=== PATIENT | male | born 1990 | race Caucasian/White ===

== ENCOUNTER 2016-07-17 11:27 | Inpatient (IN) ==
--- NOTE | 2016-07-17 12:00 | Emergency Department Note ---
Disposition Clinical Impression: Syncope, Tachycardia, Testicular cancer, Sepsis, Pneumonia, Abnormal urinalysis , Anemia Disposition: Admitted As Inpatient Referrals: NO,PCP [Primary Care Provider] - Forms: Work/School Release, ED Satisfaction Letter General Adult HPI - General Chief complaint: ED General Medical Stated complaint: Near syncope, fever, cancer patient Source: patient, family Limitations: no limitations - History of Present Illness HPI Narrative: 26-year-old male reports emergency department concerned with fever and feeling weak and passing out. The patient is being treated for testicular cancer. He finished treatments last week and was told if he developed fever to consult with a physician. The patient states he has had temperatures up to 102. He has also had a cough but no efra sore throat and ear pain or runny nose. No coughing of blood or chest pain or leg swelling or pain. The patient felt weak today, he essentially started to fall and reports he lost consciousness he was caught by his female newspaper journalist and then revived. There is no history of seizure -like activity or direct injury or fall onto the ground. The patient denies any chest pain shortness of breath abdominal pain vomiting or diarrhea he has had no trouble moving his arms or legs independently, there is no history of headache or confusion. No dysarthria or unilateral arm or leg weakness or numbness no back pain or urinary problems. The patient's concerns are fever, recent cancer therapy, and passing out or nearly passing out today. There is no history of bleeding. The patient is not known to be anticoagulated. He has no history of heart arrhythmias or heart problems. Pain Scale: 5 - Related Data Home Medications Medication Instructions Recorded Confirmed Ibuprofen [Motrin] 800 mg PO AD PRN 04/06/16 04/22/16 Previous Rx's Medication Instructions Recorded Hydrocodone/Acetaminophen 1 each PO Q4H PRN #20 tablet 03/28/16 [Hydrocodon-Acetaminophen 5-325] Dexamethasone [Decadron] 4 mg PO BID #36 tab 04/15/16 Magic Mouthwash [Magic Mouthwash 10 ml PO QID PRN #240 ml 04/15/16 BLM] Ondansetron ODT [Zofran ODT] 4 mg SL Q8HR PRN #30 tab.rapdis 04/15/16 Prochlorperazine Maleate 10 mg PO Q8HR PRN #90 tablet 04/15/16 [Compazine] Lidocaine/Prilocaine CREAM [Emla] 1 gm TP AD #1 tube 04/22/16 Promethazine [Phenergan] 12.5 mg RC Q6HR PRN #15 supp.rect 06/08/16 Promethazine [Phenergan] 25 mg PO Q6HR PRN #30 tablet 06/08/16 Filgrastim [Neupogen] 480 mcg SQ DAILY #5 mls 06/27/16 Allergies Allergy/AdvReac Type Severity Reaction Status Date / Time No Known Allergies Allergy Verified 07/04/16 14:40 All systems ED: reviewed and negative except as stated. Past Medical History - Past Medical History Medical history: Reports: cancer, other Psychiatric history: Reports: no psych history - Social History Smoking Status: Never smoker Smokeless Tobacco Status: No Alcohol use: Reports: none Drug use: Reports: none Physical Exam - General Limitations: no limitations General appearance: alert, in no apparent distress - Head Head exam: atraumatic, normocephalic, normal inspection - Eye Eye exam: Present: normal appearance, PERRL, EOMI. Absent: scleral icterus, conjunctival injection, miosis, mydriasis - ENT ENT exam: normal exam, normal oropharynx, mucous membranes moist, TM's normal bilaterally, normal external ear exam - Neck Neck exam: Present: normal inspection, full ROM, trachea midline. Absent: tenderness, meningismus - Chest Chest inspection: Present: symmetric chest wall rise. Absent: tenderness - Respiratory Respiratory exam: Present: normal lung sounds bilaterally. Absent: respiratory distress, prolonged expiratory phase - Cardiovascular Cardiovascular exam: Present: normal rhythm, tachycardia - Abdominal Exam Abdominal exam: Present: soft, Non-Tender, normal bowel sounds. Absent: tenderness, distention, guarding, rebound, rigidity, pulsatile mass - Extremities Exam Extremities exam: Present: normal inspection, full ROM, normal capillary refill. Absent: tenderness, pedal edema, joint swelling, calf tenderness - Expanded Lower Extremity Exam Lower leg exam: Absent: Homans' sign Neurovascular/Tendon exam: Present: normal capillary refill. Absent: motor deficit, sensory deficit, tendon deficit, extremity cold to touch, pallor - Back Exam Back exam: Present: normal inspection, full ROM. Absent: tenderness, CVA tenderness (R), CVA tenderness (L), vertebral tenderness - Neurological Exam Neurological exam: Present: alert, oriented X3, CN II-XII intact. Absent: motor sensory deficit - Psychiatric Psychiatric exam: Present: normal affect, normal mood - Skin Skin exam: Present: warm, dry, intact, normal color. Absent: rash, cyanosis, diaphoresis, erythema, pallor, mottled Course Vital Signs Temperature 98.0 F 07/17/16 11:29 Pulse Rate 113 07/17/16 11:29 Respiratory Rate 18 07/17/16 11:29 Blood Pressure 112/78 07/17/16 11:29 O2 Sat by Pulse Oximetry 97 07/17/16 11:29 Temperature 98.0 F 07/17/16 11:29 Pulse Rate 106 07/17/16 14:31 Respiratory Rate 18 07/17/16 14:31 Blood Pressure 113/76 07/17/16 14:31 O2 Sat by Pulse Oximetry 95 07/17/16 14:31 Oxygen Delivery Oxygen Delivery Room Air Medical Decision Making - MDM Narrative Medical decision making narrative: The patient has a history of testicular cancer with recent treatment, he is leukopenic, tachycardic, and has apparent pneumonia based on the chest x-ray. He meets sepsis criteria. The patient had a syncopal event, he was given IV fluids, blood cultures were sent, initial antibiotics were ordered. Based on the patient's comorbidities, apparent pneumonitis, immunocompromise, positive sepsis criteria and syncopal event, I thought it would be appropriate to admit the patient to the hospital. I discussed the case with the hospitalist who has accepted the patient to their care. - Lab Data Lab results reviewed: Yes I reviewed the patient's lab results. Result diagrams: 07/17/16 12:35 07/17/16 12:35 Lab Results 07/17/16 07/17/16 07/17/16 Range/Units 12:07 12:07 12:35 WBC 2.8 L (4.3-11.1) K/mcL RBC 4.04 L (4.19-5.50) M/mcL Hgb 11.9 L (12.9-16.9) g/dL Hct 34.5 L (37.5-50.1) % MCV 85.4 (83.0-100.0) fL MCH 29.5 (28.0-33.3) pg MCHC 34.5 (31.6-35.5) g/dL RDW 13.4 (11.5-14.5) % Plt Count 316 (140-400) K/mcL MPV 8.6 L (9.4-12.4) fL Seg Neutrophils % 64.0 % Band Neutrophils % 2.0 (0-4) % Lymphocytes % 16.0 % Monocytes % 18.0 % Neutrophils # 1.9 (1.6-8.9) K/mcL Lymphocytes # 0.5 L (0.6-4.6) K/mcL Monocytes # 0.5 (0.0-1.3) K/mcL Platelet Estimate Normal (Normal) PT (9.4-12.1) Seconds INR APTT (26.0-36.0) Seconds Sodium (136-145) mEq/L Potassium (3.5-4.5) mEq/L Chloride (98-109) mEq/L Carbon Dioxide (19-29) mEq/L BUN (8-26) mg/dL Creatinine (0.72-1.25) mg/dL Est GFR ( Amer) (> 60) Est GFR (Non-Af Amer) (> 60) BUN/Creatinine Ratio (6-26) Glucose (70-99) mg/dL Calculated Osmolality (280-300) Lactic Acid (0.5-2.2) mmol/L Calcium (8.6-10.8) mg/dL Total Bilirubin (0.2-1.2) mg/dL Direct Bilirubin (0.0-0.5) mg/dL Indirect Bilirubin (0.0-1.2) mg/dL AST (5-34) Units/L ALT (0-55) Units/L Alkaline Phosphatase (38-126) Units/L Troponin I (0-0.03) ng/mL C-Reactive Protein (Less than 5) mg/L Serum Total Protein (6.0-8.3) g/dL Albumin (3.5-5.0) g/dL Globulin (2.4-3.5) g/dL Albumin/Globulin Ratio (1.1-2.2) Ur Specimen Adequacy See below A Urine Color Dark Yellow (Yellow) Urine Clarity Cloudy A (Clear) Urine pH 6.0 (5.0-8.0) pH Units Ur Specific [place] 1.029 H (1.010-1.025) Urine Protein 30 H (Neg-Trace) mg/dL Urine Glucose (UA) Normal (Normal) mg/dL Urine Ketones Negative (Negative) mg/dL Urine Blood Negative (Negative) Urine Nitrite Negative (Negative) Urine Bilirubin Negative (Negative) Urine Urobilinogen Normal (Normal) mg/dL Ur Leukocyte Esterase Negative (Negative) Urine Microscopic RBC 0-3 (0-3) per hpf Urine Microscopic WBC 5-15 H (0-3) per hpf Ur Squamous Epith Cells Many H (None-Few) per lpf Urine Bacteria None Seen (None-Few) per hpf Ur Culture Indicated? YES A (NO) Urine Opiates Screen Negative (Ohwpxm=583) ng/mL Ur Barbiturates Screen Negative (Qfilob=065) ng/mL Ur Phencyclidine Scrn Negative (Cutoff=25) ng/mL Ur Amphetamines Screen Negative (Rftgcz=6590) ng/mL U Benzodiazepines Scrn Negative (Tidjgp=649) ng/mL Urine Cocaine Screen Negative (Cutoff= 300) ng/mL U Marijuana (THC) Screen Negative (Cutoff = 50) ng/mL 07/17/16 07/17/16 07/17/16 Range/Units 12:35 12:35 12:35 WBC (4.3-11.1) K/mcL RBC (4.19-5.50) M/mcL Hgb (12.9-16.9) g/dL Hct (37.5-50.1) % MCV (83.0-100.0) fL MCH (28.0-33.3) pg MCHC (31.6-35.5) g/dL RDW (11.5-14.5) % Plt Count (140-400) K/mcL MPV (9.4-12.4) fL Seg Neutrophils % % Band Neutrophils % (0-4) % Lymphocytes % % Monocytes % % Neutrophils # (1.6-8.9) K/mcL Lymphocytes # (0.6-4.6) K/mcL Monocytes # (0.0-1.3) K/mcL Platelet Estimate (Normal) PT 12.6 H (9.4-12.1) Seconds INR 1.2 APTT 29.6 (26.0-36.0) Seconds Sodium 138 (136-145) mEq/L Potassium 3.5 (3.5-4.5) mEq/L Chloride 103 (98-109) mEq/L Carbon Dioxide 28 (19-29) mEq/L BUN 16 (8-26) mg/dL Creatinine 0.91 (0.72-1.25) mg/dL Est GFR ( Amer) > 60 (> 60) Est GFR (Non-Af Amer) > 60 (> 60) BUN/Creatinine Ratio 18 (6-26) Glucose 104 H (70-99) mg/dL Calculated Osmolality 287 (280-300) Lactic Acid 0.9 (0.5-2.2) mmol/L Calcium 8.6 (8.6-10.8) mg/dL Total Bilirubin 0.5 (0.2-1.2) mg/dL Direct Bilirubin 0.2 (0.0-0.5) mg/dL Indirect Bilirubin 0.3 (0.0-1.2) mg/dL AST 26 (5-34) Units/L ALT 32 (0-55) Units/L Alkaline Phosphatase 51 (38-126) Units/L Troponin I (0-0.03) ng/mL C-Reactive Protein 6 H (Less than 5) mg/L Serum Total Protein 6.5 (6.0-8.3) g/dL Albumin 3.4 L (3.5-5.0) g/dL Globulin 3.1 (2.4-3.5) g/dL Albumin/Globulin Ratio 1.1 (1.1-2.2) Ur Specimen Adequacy Urine Color (Yellow) Urine Clarity (Clear) Urine pH (5.0-8.0) pH Units Ur Specific [place] (1.010-1.025) Urine Protein (Neg-Trace) mg/dL Urine Glucose (UA) (Normal) mg/dL Urine Ketones (Negative) mg/dL Urine Blood (Negative) Urine Nitrite (Negative) Urine Bilirubin (Negative) Urine Urobilinogen (Normal) mg/dL Ur Leukocyte Esterase (Negative) Urine Microscopic RBC (0-3) per hpf Urine Microscopic WBC (0-3) per hpf Ur Squamous Epith Cells (None-Few) per lpf Urine Bacteria (None-Few) per hpf Ur Culture Indicated? (NO) Urine Opiates Screen (Bwpytx=621) ng/mL Ur Barbiturates Screen (Clismt=667) ng/mL Ur Phencyclidine Scrn (Cutoff=25) ng/mL Ur Amphetamines Screen (Efunsp=0773) ng/mL U Benzodiazepines Scrn (Qpjght=729) ng/mL Urine Cocaine Screen (Cutoff= 300) ng/mL U Marijuana (THC) Screen (Cutoff = 50) ng/mL 07/17/16 Range/Units 12:35 WBC (4.3-11.1) K/mcL RBC (4.19-5.50) M/mcL Hgb (12.9-16.9) g/dL Hct (37.5-50.1) % MCV (83.0-100.0) fL MCH (28.0-33.3) pg MCHC (31.6-35.5) g/dL RDW (11.5-14.5) % Plt Count (140-400) K/mcL MPV (9.4-12.4) fL Seg Neutrophils % % Band Neutrophils % (0-4) % Lymphocytes % % Monocytes % % Neutrophils # (1.6-8.9) K/mcL Lymphocytes # (0.6-4.6) K/mcL Monocytes # (0.0-1.3) K/mcL Platelet Estimate (Normal) PT (9.4-12.1) Seconds INR APTT (26.0-36.0) Seconds Sodium (136-145) mEq/L Potassium (3.5-4.5) mEq/L Chloride (98-109) mEq/L Carbon Dioxide (19-29) mEq/L BUN (8-26) mg/dL Creatinine (0.72-1.25) mg/dL Est GFR ( Amer) (> 60) Est GFR (Non-Af Amer) (> 60) BUN/Creatinine Ratio (6-26) Glucose (70-99) mg/dL Calculated Osmolality (280-300) Lactic Acid (0.5-2.2) mmol/L Calcium (8.6-10.8) mg/dL Total Bilirubin (0.2-1.2) mg/dL Direct Bilirubin (0.0-0.5) mg/dL Indirect Bilirubin (0.0-1.2) mg/dL AST (5-34) Units/L ALT (0-55) Units/L Alkaline Phosphatase (38-126) Units/L Troponin I 0.00 (0-0.03) ng/mL C-Reactive Protein (Less than 5) mg/L Serum Total Protein (6.0-8.3) g/dL Albumin (3.5-5.0) g/dL Globulin (2.4-3.5) g/dL Albumin/Globulin Ratio (1.1-2.2) Ur Specimen Adequacy Urine Color (Yellow) Urine Clarity (Clear) Urine pH (5.0-8.0) pH Units Ur Specific [place] (1.010-1.025) Urine Protein (Neg-Trace) mg/dL Urine Glucose (UA) (Normal) mg/dL Urine Ketones (Negative) mg/dL Urine Blood (Negative) Urine Nitrite (Negative) Urine Bilirubin (Negative) Urine Urobilinogen (Normal) mg/dL Ur Leukocyte Esterase (Negative) Urine Microscopic RBC (0-3) per hpf Urine Microscopic WBC (0-3) per hpf Ur Squamous Epith Cells (None-Few) per lpf Urine Bacteria (None-Few) per hpf Ur Culture Indicated? (NO) Urine Opiates Screen (Xaflak=884) ng/mL Ur Barbiturates Screen (Mxbmvu=225) ng/mL Ur Phencyclidine Scrn (Cutoff=25) ng/mL Ur Amphetamines Screen (Oeuskg=2856) ng/mL U Benzodiazepines Scrn (Pyhgpq=425) ng/mL Urine Cocaine Screen (Cutoff= 300) ng/mL U Marijuana (THC) Screen (Cutoff = 50) ng/mL - Radiology Data Radiology results reviewed: Yes I reviewed the patient's radiology results.
[2016-07-17 12:17] LABS: Bilirubin,Urine Negative (Negative); Blood,Urine Negative (Negative); Clarity,Urine Cloudy (Clear); Color,Urine Dark Yellow (Yellow); Glucose,Urine (UA) Normal (Normal); Ketones,Urine Negative (Negative); Leukocyte Esterase,Urine Negative (Negative); Nitrite,Urine Negative (Negative); Protein,Urine 30 mg/dL (Neg-Trace); Specific Gravity,Urine 1.029 (1.010-1.025); Urobilinogen,Urine Normal (Normal)
[2016-07-17 12:20] LABS: Bacteria,Urine None Seen per hpf (None-Few); Squamous Epithelial Cell,Urine Many per lpf (None-Few)
[2016-07-17 12:22] LABS: Amphetamine Screen,Urine Negative ng/mL (Cutoff=1000); Barbiturate Screen,Urine Negative ng/mL (Cutoff=200); Benzodiazepines Screen,Urine Negative ng/mL (Cutoff=200); Cannabinoid Screen,Urine Negative ng/mL (Cutoff = 50); Cocaine Screen,Urine Negative ng/mL (Cutoff= 300); Opiate Screen,Urine Negative ng/mL (Cutoff=300); Phencyclidine Screen,Urine Negative ng/mL (Cutoff=25)
[2016-07-17 12:28] LABS: RBC,Urine 0-3 per hpf (0-3)
[2016-07-17 12:48] LABS: Hematocrit 34.5 % (37.5-50.1); Hemoglobin 11.9 g/dL (12.9-16.9); Mean Corpuscular HGB Conc 34.5 g/dL (31.6-35.5); Mean Corpuscular Hemoglobin 29.5 pg (28.0-33.3); Mean Corpuscular Volume 85.4 fL (83.0-100.0); Mean Platelet Volume 8.6 fL (9.4-12.4); Platelet Count 316 K/mcL (140-400); Red Blood Count 4.04 M/mcL (4.19-5.50); Red Cell Distribution Width 13.4 % (11.5-14.5)
[2016-07-17 12:53] LABS: INR 1.2; Prothrombin Time 12.6 Seconds (9.4-12.1)
[2016-07-17 12:56] LABS: Activated Partial Thrombo Time 29.6 Seconds (26.0-36.0)
[2016-07-17 13:02] LABS: Alanine Aminotransferase 32 Units/L (0-55); Albumin 3.4 g/dL (3.5-5.0); Albumin/Globulin Ratio 1.1 (1.1-2.2); Alkaline Phosphatase 51 Units/L (38-126); Aspartate Amino Transferase 26 Units/L (5-34); BUN/Creatinine Ratio 18 (6-26); Bilirubin,Direct 0.2 mg/dL (0.0-0.5); Bilirubin,Indirect 0.3 mg/dL (0.0-1.2); Bilirubin,Total 0.5 mg/dL (0.2-1.2); Blood Urea Nitrogen 16 mg/dL (8-26); C-Reactive Protein 6 mg/L (Less than 5); Calcium 8.6 mg/dL (8.6-10.8); Carbon Dioxide 28 mEq/L (19-29); Chloride 103 mEq/L (98-109); Globulin 3.1 g/dL (2.4-3.5); Glucose 104 mg/dL (70-99); Osmolality,Calculated 287 (280-300); Potassium 3.5 mEq/L (3.5-4.5); Sodium 138 mEq/L (136-145); Total Protein 6.5 g/dL (6.0-8.3); eGFR For African Americans > 60 (> 60); eGFR For Non-African Americans > 60 (> 60)
[2016-07-17 13:14] LABS: Lymphocytes # 0.5 K/mcL (0.6-4.6); Monocytes # 0.5 K/mcL (0.0-1.3); Neutrophils # 1.9 K/mcL (1.6-8.9)
[2016-07-17 13:15] LABS: Platelet Estimate Normal (Normal)
[2016-07-17] MEDS ORDERED: Levofloxacin 750 MG/150 ML 750 MG/150 ML BAG IVPB ONE (14:30)
[2016-07-17] MEDS ORDERED: 0.9 % Sodium Chloride 1,000 ML IVC SCH (14:45)
[2016-07-17] MEDS ORDERED: Naloxone 0.4 MG/ML INJ IVP PRN (15:33)
[2016-07-17] MEDS ORDERED: Ibuprofen 400 MG TABLET PO PRN (15:33)
[2016-07-17] MEDS ORDERED: Acetaminophen 325 MG TABLET PO PRN (15:33)
[2016-07-17] MEDS ORDERED: *HR* HYDROcodone/Acet 5/325 mg TABLET PO PRN (15:35)
--- NOTE | 2016-07-17 15:43 | Internal Med History&Physical ---
Date of Encounter: 07/17/16 Time of Encounter: 15:15 Assessment and Plan (1) HCAP (healthcare-associated pneumonia) Current visit: Yes Status: Acute CXR consistent with Left lower lobe PNA Given immunocompromised status and currently being on chemotherapy, will treat as HCAP continue IV vancomycin and zosyn Pharmacy to dose Vancomycin and monitor trough continue IV fluids sinus tachycardia noted, likely secondary to underlying infection will follow up blood cultures No urinary symptoms reported given current UA, will f/u urine cultures Tylenol prn fever Guaifenesin Prn cough will obtain sputum cultures if able (currently denies productive cough) will monitor respiratory status O2 supplementation as needed (2) Anemia Current visit: Yes Status: Acute likely of chronic disease will obtain iron studies H&H low but acceptable no acute bleeding reported at this time will continue to closely monitor Qualifiers: Anemia type: unspecified type Qualified Code(s): D64.9 - Anemia, unspecified (3) Testicular cancer Current visit: Yes Status: Chronic Currently undergoing chemotherapy under the care of Dr. Trinh last chemotherapy: June Will closely monitor WBC and maintain neutropenic precautions if needed continue pain control as per home medications Promethazine prn n/v Qualifiers: Descendance of testis: unspecified Laterality: unspecified laterality Qualified Code(s): C62.90 - Malignant neoplasm of unspecified testis, unspecified whether descended or undescended (4) DVT prophylaxis Current visit: Yes Status: Acute Lovenox SQ Internal Medicine - H&P: HPI Chief complaint: syncope Admitted From: Home Plans for Post Hospital Care: Home History of present illness: Mr. Godoy is a 26 year old male with PMH of testicular ca (Non-seminoma germ cell tumor), s/p radical orchiectomy who presented to the ER s/p syncopal episode. Patient states he has been feeling sick with fever, chills, cough for the last few days and felt weak today. He states he felt too weak today with Tmax of 102 and passed out due to which he came to the hospital. He reports of finishing his chemotherapy on June. Upon arrival to the ER he was noted to be have anemia, tachycardia, and imaging finding consistent with left lower lobe pneumonia. He is started on IV abx and iV fluids. At this time he is resting comfortably in bed with family present at bedside. Reports of feeling better. Denies any headache, dizziness, lightheadedness, chest pain, palpitations, sob, abd pain, n/v, fever, or chills at this time. Past Med Surg Social Fam HX - Past Medical History Medical history: cancer (testicular cancer), other Psychiatric history: no psych history - Social History Smoking Status: Never smoker Smokeless Tobacco Status: No Alcohol use: none Drug use: none Internal Medicine - H&P: Meds Hydrocodone/Acetaminophen [Hydrocodon-Acetaminophen 5-325] 1 each PO Q4H PRN # 20 tablet 03/28/16 [Rx] Ibuprofen [Motrin] 800 mg PO AD PRN 04/06/16 [History] Dexamethasone [Decadron] 4 mg PO BID #36 tab 04/15/16 [Rx] Magic Mouthwash [Magic Mouthwash BLM] 10 ml PO QID PRN #240 ml 04/15/16 [Rx] Ondansetron ODT [Zofran ODT] 4 mg SL Q8HR PRN #30 tab.rapdis 04/15/16 [Rx] Prochlorperazine Maleate [Compazine] 10 mg PO Q8HR PRN #90 tablet 04/15/16 [Rx] Lidocaine/Prilocaine CREAM [Emla] 1 gm TP AD #1 tube 04/22/16 [Rx] Promethazine [Phenergan] 12.5 mg RC Q6HR PRN #15 supp.rect 06/08/16 [Rx] Promethazine [Phenergan] 25 mg PO Q6HR PRN #30 tablet 06/08/16 [Rx] Filgrastim [Neupogen] 480 mcg SQ DAILY #5 mls 06/27/16 [Rx] Allergies No Known Allergies Allergy (Verified 07/04/16 14:40) All Systems PM: A 10-system review of systems was performed and is negative for pertinent findings except as documented above in the HPI. - Constitutional Constitutional: as per HPI - Constitutional Vitals: Temp Pulse Resp BP Pulse Ox 98.0 F 106 18 114/72 97 07/17/16 11:29 07/17/16 15:01 07/17/16 15:01 07/17/16 15:01 07/17/16 15:01 General appearance: Present: cooperative, A&O X 3, pleasant, no acute distress, answers questions appropriately - Head Head exam: Present: atraumatic, normocephalic - Eye Eye exam: Present: EOMI, normal appearance, conjuntiva pink, sclera anicteric - Respiratory Respiratory exam: Absent: respiratory distress, wheezes (coarse breath sounds bilaterally) - Cardiovascular Cardiovascular exam: Present: +S1, +S2, tachycardia. Absent: diastolic murmur, systolic murmur - GI/Abdominal GI/Abdominal exam: Present: normal bowel sounds, soft, no peritoneal signs. Absent: distended, tenderness - Extremities Exam Extremities exam: Present: warm, radial pulses palpable and symetrical. Absent : calf tenderness, cyanotic, pedal edema - Neurological Exam Neurological exam: Present: alert, oriented X3, no focal deficits - Psychiatric Psychiatric exam: Present: normal affect, normal mood Internal Med - H&P Results - Labs CBC & Chem 7: 07/17/16 12:35 07/17/16 12:35
[2016-07-17] MEDS ORDERED: GuaiFENesin Liq 200 MG/10 ML UDC PO PRN (15:48)
[2016-07-17] MEDS ORDERED: Vancomycin 2,000 MG in D5% in Water 500 ML IVPB ONE (17:00)
[2016-07-17] MEDS: 0.9 % Sodium Chloride 1,000 ML IVC SCH (17:16)
[2016-07-17] MEDS: Piperacillin/Tazobactam 3.375 GM in D5% in Water (Mini-Bag+) 100 ML IVPB SCH (17:22)
[2016-07-18] MEDS: Piperacillin/Tazobactam 3.375 GM in D5% in Water (Mini-Bag+) 100 ML IVPB SCH ×3 (01:17→17:09)
[2016-07-18] MEDS: *HR* Enoxaparin 40 MG/0.4 ML SYRINGE SQ SCH (04:59)
[2016-07-18] MEDS: Vancomycin 1,500 MG in D5% in Water 250 ML IVPB SCH ×2 (04:59→17:09)
[2016-07-18 05:08] LABS: Basophils % 1.6 %; Eosinophils % 0.8 %; Hematocrit 32.3 % (37.5-50.1); Hemoglobin 10.9 g/dL (12.9-16.9); Immature Granulocytes % 0.8 % (0-4); Lymphocytes % 25.9 %; Mean Corpuscular HGB Conc 33.7 g/dL (31.6-35.5); Mean Corpuscular Volume 85.9 fL (83.0-100.0); Mean Platelet Volume 8.6 fL (9.4-12.4); Monocytes # 0.6 K/mcL (0.0-1.3); Monocytes % 24.3 %; Neutrophils # 1.2 K/mcL (1.6-8.9); Platelet Count 275 K/mcL (140-400); Red Blood Count 3.76 M/mcL (4.19-5.50); Red Cell Distribution Width 13.4 % (11.5-14.5); Segmented Neutrophils % 46.6 %
[2016-07-18 05:17] LABS: BUN/Creatinine Ratio 14 (6-26); Blood Urea Nitrogen 12 mg/dL (8-26); Calcium 8.4 mg/dL (8.6-10.8); Carbon Dioxide 23 mEq/L (19-29); Chloride 102 mEq/L (98-109); Glucose 95 mg/dL (70-99); Magnesium 1.6 mg/dL (1.6-2.6); Osmolality,Calculated 280 (280-300); Phosphorous 3.7 mg/dL (2.3-4.7); Potassium 3.9 mEq/L (3.5-4.5); Sodium 135 mEq/L (136-145); eGFR For African Americans > 60 (> 60); eGFR For Non-African Americans > 60 (> 60)
[2016-07-18 05:31] LABS: % Iron Saturation 71 % (20-55); Iron 168 mcg/dL (65-175); Transferrin 170 mg/dL (174-364)
[2016-07-18 05:51] LABS: Ferritin 1162 ng/ml (22-275)
[2016-07-18 05:56] LABS: Lymphocytes # 0.7 K/mcL (0.6-4.6)
[2016-07-18 05:57] LABS: Platelet Estimate Normal (Normal); Reactive Lymphocytes Present (Not Present)
[2016-07-18] MEDS: 0.9 % Sodium Chloride 1,000 ML IVC SCH (09:28)
[2016-07-18] MEDS: *HR* Promethazine 25 MG/ML VIAL IVP PRN ×2 (09:33→22:59)
--- NOTE | 2016-07-18 10:04 | Internal Med Progress Note ---
Date of Encounter: 07/18/16 Time of Encounter: 09:20 - Assessment and plan (1) HCAP (healthcare-associated pneumonia) Current Visit: Yes Status: Acute Assessment and plan: CXR consistent with Left lower lobe PNA Given immunocompromised status and currently being on chemotherapy, will treat as HCAP continue IV vancomycin and zosyn Pharmacy to dose Vancomycin and monitor trough continue IV fluids Follow up blood cultures No urinary symptoms reported given current UA, will f/u urine cultures Tylenol prn fever Guaifenesin Prn cough will obtain sputum cultures if able (currently denies productive cough) will monitor respiratory status O2 supplementation as needed (2) Anemia Current Visit: Yes Status: Acute Assessment and plan: H&H low but acceptable studies consistent with anemia of chronic disease no acute bleeding reported at this time continue to closely monitor Qualifiers: Anemia type: unspecified type Qualified Code(s): D64.9 - Anemia, unspecified (3) Testicular cancer Current Visit: Yes Status: Chronic Assessment and plan: Currently undergoing chemotherapy under the care of Dr. Trinh last chemotherapy: June continue pain control as per home medications Promethazine prn n/v Noted to have drop in ANC consistent with mild neutropenia. Will start neupogen sq today and closely monitor ANC count. follow up consultation with oncology Qualifiers: Descendance of testis: unspecified Laterality: unspecified laterality Qualified Code(s): C62.90 - Malignant neoplasm of unspecified testis, unspecified whether descended or undescended (4) DVT prophylaxis Current Visit: Yes Status: Acute Assessment and plan: Lovenox SQ - Subjective Interval history: Patient seen and examined, with family present at bedside. Patient reports feeling better, tachycardia resolved. Reports of nausea which is currently being relieved with Phenergan. Noted to have drop in ANC, consistent with mild neutropenia. Patient reports of using Neupogen in the past after chemotherapy sessions. We will restart Neupogen today. - Constitutional Vitals: Temp Pulse Resp BP Pulse Ox 98.0 F 90 16 113/80 94 07/18/16 07:00 07/18/16 07:00 07/18/16 07:00 07/18/16 07:00 07/18/16 09:39 General appearance: Present: cooperative, A&O X 3, pleasant, no acute distress, answers questions appropriately - Head Head exam: Present: atraumatic, normocephalic - Eye Eye exam: Present: normal appearance, PERRL, conjuntiva pink, sclera anicteric - Respiratory Respiratory exam: Absent: accessory muscle use, rales, rhonchi, wheezes Additional comments: coarse breath sounds bilaterally - Cardiovascular Cardiovascular exam: Present: RRR, +S1, +S2. Absent: diastolic murmur, gallop, rubs, systolic murmur Additional comments: right chest wall chemoport in place - GI/Abdominal GI/Abdominal exam: Present: normal bowel sounds, soft, no peritoneal signs. Absent: distended, tenderness - Extremities Exam Extremities exam: Present: warm, radial pulses palpable and symetrical. Absent : calf tenderness, cyanotic, pedal edema - Neurological Exam Neurological exam: Present: alert, oriented X3 - Psychiatric Psychiatric exam: Present: normal affect, normal mood Internal Medicine: Result - Labs CBC & Chem 7: 07/18/16 04:50 07/18/16 04:50 Labs: Short CBC 07/18/16 Range/Units 04:50 WBC 2.5 L (4.3-11.1) K/mcL Hgb 10.9 L (12.9-16.9) g/dL Hct 32.3 L (37.5-50.1) % Plt Count 275 (140-400) K/mcL Neutrophils # 1.2 L (1.6-8.9) K/mcL BMP 07/18/16 04:50 Sodium 135 L Potassium 3.9 Chloride 102 Carbon Dioxide 23 BUN 12 Creatinine 0.83 Glucose 95 Calcium 8.4 L - ABG Interpretation ABG results: PT/INR, D-dimer PT 12.6 Seconds (9.4-12.1) H 07/17/16 12:35 Consult Discharge Plan - Plan Referrals: NO,PCP [Primary Care Provider] -
--- NOTE | 2016-07-18 17:08 | Event Note ---
Date of Encounter: 07/18/16
--- NOTE | 2016-07-18 17:48 | Electrocardiograph Report ---
[address] [address] Test Date: 2016-07-17 Pat Name: Damien Godoy Department: 103 Room: 3A Gender: M [employer] Tender: : 1990 Requested By: Jared Beth Order Number: [id number] Reading MD: Tim Amezcua Measurements Intervals [place] Rate: 103 P: 12 RI: 137 QRS: 15 QRSD: 97 T: 5 QT: 310 QTc: 370 Interpretive Statements SINUS TACHYCARDIA ABNORMAL RHYTHM ECG Electronically Signed On 07-18-2016 17:46:33 EDT by Tim Amezcua
--- NOTE | 2016-07-18 18:11 | Oncology Inp Consult Note ---
Date of Encounter: 07/18/16 Time of Encounter: 17:00 Assessment and Plan (1) Pneumonia Status: Acute Assessment and plan: Patient with testicular cancer status post chemotherapy last treatment in June 2016 hospitalized with fever, borderline neutrophil count, tachypnea left lower lobe infiltrates status post panculture nasopharyngeal swab negative on broad- spectrum antibiotics. He had received 1 dose of Neupogen today. Please discontinue Neupogen as patient is not very neutropenic. Another possibility includes bleomycin toxicity with dry cough and high fever which. Regardless patient not look toxic and oxygenation is up to 96% on room air and is not needing steroids. Await blood culture results if negative and patient is stable he will be discharged to follow up with me in the clinic. Plan of care discussed with patient and family in detail who stated understanding. 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 He was initially referred to surgery for evaluation and thought to have hernia. Patient was prescribed antibiotics subsequently had an ultrasound and urology visit. US showed a multilobulated heterogenous mass extending into epididymis consistent with malignancy. He underwent radical orchiectomy on 03/28/[address] Cobos. Tumor markers including LDH, B HCG and AFP were drawn 03/28/16 that showed elevated B-HCG at [address] abd 04/04/16 showed enlarged retroperitoneal adenopathy measuring 4.7x2.8x1.8cm, indeterminate rt calcified RML nodule Denied SOB, wt loss or cough with expectoration or abd pain. Final pathology on the testicular mass is consistent with non-seminoma germ cell tumor embryonal 75%, teratoma, yolk sac component. CT scan of abdomen shows lymphadenopathy measurement as above. CT scan of the chest does not show any lung metastatic disease 3 mm right middle lobe nodule as noted above. He had another opinion and seen Urology at [facility] as well He is s/p C1 Rx with BEP--05/02/16, C3 last dose 07/04/16 PFTs nl DLCO Tumor markers nl after 3 cycles. She was hospitalized with the tachycardia fever of 102 degrees, chest x-ray showing left lower lobe infiltrates. ANC was normal at 1.2. He is started on Neupogen for borderline neutropenia. Patient also reports dry cough since . Poor appetite. Minimal shortness of breath that has improved since hospitalization and antibiotics. Point review of systems otherwise negative. Past Med Surg Social Fam HX - Past Medical History Medical history: cancer, other Psychiatric history: no psych history - Social History Smoking Status: Never smoker Smokeless Tobacco Status: No Alcohol use: none Drug use: none Medications and Allergies Hydrocodone/Acetaminophen [Hydrocodon-Acetaminophen 5-325] 1 each PO Q4H PRN # 20 tablet 03/28/16 [Rx] Ibuprofen [Motrin] 800 mg PO AD PRN 04/06/16 [History] Dexamethasone [Decadron] 4 mg PO BID #36 tab 04/15/16 [Rx] Magic Mouthwash [Magic Mouthwash BLM] 10 ml PO QID PRN #240 ml 04/15/16 [Rx] Ondansetron ODT [Zofran ODT] 4 mg SL Q8HR PRN #30 tab.rapdis 04/15/16 [Rx] Prochlorperazine Maleate [Compazine] 10 mg PO Q8HR PRN #90 tablet 04/15/16 [Rx] Lidocaine/Prilocaine CREAM [Emla] 1 gm TP AD #1 tube 04/22/16 [Rx] Promethazine [Phenergan] 12.5 mg RC Q6HR PRN #15 supp.rect 06/08/16 [Rx] Promethazine [Phenergan] 25 mg PO Q6HR PRN #30 tablet 06/08/16 [Rx] Filgrastim [Neupogen] 480 mcg SQ DAILY #5 mls 06/27/16 [Rx] Allergies No Known Allergies Allergy (Verified 07/04/16 14:40) Review of systems: as in HPI Oncology - Exam - Constitutional Vitals: Temp Pulse Resp BP Pulse Ox 98.6 F 96 16 116/74 98 07/18/16 15:45 07/18/16 15:45 07/18/16 15:45 07/18/16 15:45 07/18/16 17:12 General appearance: average body habitus - Head Head exam: Present: atraumatic - Eye Eye exam: Present: EOMI, conjuntiva pink - ENT ENT exam: Present: mucous membranes moist Additional comments: no thrush or mucositis - Neck Neck exam: Present: normal inspection - Respiratory Additional comments: Basal rales - Cardiovascular Cardiovascular exam: Present: tachycardia - GI/Abdominal GI/Abdominal exam: Present: firm, normal bowel sounds - Extremities Exam Extremities exam: Present: normal inspection Oncology - Results - Labs Labs: Short CBC 07/18/16 Range/Units 04:50 WBC 2.5 L (4.3-11.1) K/mcL Hgb 10.9 L (12.9-16.9) g/dL Hct 32.3 L (37.5-50.1) % Plt Count 275 (140-400) K/mcL Neutrophils # 1.2 L (1.6-8.9) K/mcL BMP 07/18/16 04:50 Sodium 135 L Potassium 3.9 Chloride 102 Carbon Dioxide 23 BUN 12 Creatinine 0.83 Glucose 95 Calcium 8.4 L Consult Discharge Plan - Plan Referrals: NO,PCP [Primary Care Provider] -
[2016-07-19] MEDS: Piperacillin/Tazobactam 3.375 GM in D5% in Water (Mini-Bag+) 100 ML IVPB SCH ×3 (03:31→17:38)
[2016-07-19 04:32] LABS: Hematocrit 31.4 % (37.5-50.1); Hemoglobin 10.8 g/dL (12.9-16.9); Mean Corpuscular HGB Conc 34.4 g/dL (31.6-35.5); Mean Corpuscular Hemoglobin 29.7 pg (28.0-33.3); Mean Corpuscular Volume 86.3 fL (83.0-100.0); Mean Platelet Volume 9.1 fL (9.4-12.4); Platelet Count 286 K/mcL (140-400); Red Blood Count 3.64 M/mcL (4.19-5.50); Red Cell Distribution Width 13.6 % (11.5-14.5)
[2016-07-19 05:08] LABS: Lymphocytes # 0.5 K/mcL (0.6-4.6); Neutrophils # 10.6 K/mcL (1.6-8.9); Platelet Estimate Normal (Normal)
[2016-07-19 05:15] LABS: BUN/Creatinine Ratio 8 (6-26); Blood Urea Nitrogen 6 mg/dL (8-26); Calcium 8.4 mg/dL (8.6-10.8); Carbon Dioxide 22 mEq/L (19-29); Chloride 107 mEq/L (98-109); Glucose 82 mg/dL (70-99); Magnesium 1.7 mg/dL (1.6-2.6); Osmolality,Calculated 287 (280-300); Phosphorous 3.9 mg/dL (2.3-4.7); Potassium 3.6 mEq/L (3.5-4.5); Sodium 140 mEq/L (136-145); eGFR For African Americans > 60 (> 60); eGFR For Non-African Americans > 60 (> 60)
[2016-07-19] MEDS ORDERED: Vancomycin 1,250 MG in D5% in Water 250 ML IVPB SCH (06:00)
[2016-07-19] MEDS: *HR* Enoxaparin 40 MG/0.4 ML SYRINGE SQ SCH (06:13)
[2016-07-19] MEDS ORDERED: Aminoglycoside Consult 1 EACH MC ONE (09:34)
[2016-07-19] MEDS: 0.9 % Sodium Chloride 1,000 ML IVC SCH (10:14)
--- NOTE | 2016-07-19 11:01 | Internal Med Progress Note ---
Date of Encounter: 07/19/16 Time of Encounter: 10:30 - Assessment and plan (1) Pneumonia Current Visit: Yes Status: Acute Assessment and plan: Bacterial pneumonia in the setting of immunocompromise status due to chemotherapy. Chest x-ray showed left lower lobe infiltrate. Blood cultures are negative. Influenza test is negative. Urine culture is negative. Patient received IV vancomycin and IV Zosyn. Patient is clinically improving (needed oxygen for a short course, afebrile and his shortness of breath is better). I will stop IV vancomycin and continue IV Zosyn. If tomorrow the patient is clinically stable I will discharge him to home on oral augmentin. Qualifiers: Pneumonia type: due to unspecified organism Laterality: left Lung location: lower lobe of lung Qualified Code(s): J18.1 - Lobar pneumonia, unspecified organism (2) Neutropenia, drug-induced Current Visit: Yes Status: Acute Assessment and plan: Secondary to chemotherapy. lowest ANC was 1.2. Stop Neupogen. Close monitoring. (3) Testicular cancer Current Visit: Yes Status: Chronic Assessment and plan: Currently undergoing chemotherapy BEP (last chemotherapy: June) continue pain control as per home medications Promethazine prn n/v Qualifiers: Descendance of testis: unspecified Laterality: unspecified laterality Qualified Code(s): C62.90 - Malignant neoplasm of unspecified testis, unspecified whether descended or undescended - Subjective Interval history: Patient has less shortness of breath. He had a loose stool this morning at 8.30 am. No abdominal pain. Mild nausea. No vomiting. - Constitutional Vitals: Temp Pulse Resp BP Pulse Ox 98.2 F 95 17 115/74 91 07/19/16 06:43 07/19/16 06:43 07/19/16 06:43 07/19/16 06:43 07/19/16 06:43 General appearance: Present: cooperative, A&O X 3, pleasant, no acute distress, answers questions appropriately - Eye Eye exam: Present: PERRL, sclera anicteric - Neck Neck exam general surgery: Present: supple, trachea midline. Absent: lymphadenopathy - Respiratory Respiratory exam: Present: CTAB - Cardiovascular Cardiovascular exam: Present: RRR - GI/Abdominal GI/Abdominal exam: Present: normal bowel sounds, soft. Absent: distended, tenderness - Extremities Exam Extremities exam: Absent: pedal edema - Back Exam Back exam: Absent: CVA tenderness (L), CVA tenderness (R) - Neurological Exam Neurological exam: Present: alert, oriented X3, no focal deficits, strengths equal and symetr throughout. Absent: facial droop, speech deficit - Skin Skin exam: Absent: rash Internal Medicine: Result - Labs CBC & Chem 7: 07/19/16 03:30 07/19/16 03:30 Labs: Short CBC 07/19/16 Range/Units 03:30 WBC 12.0 H D (4.3-11.1) K/mcL Hgb 10.8 L (12.9-16.9) g/dL Hct 31.4 L (37.5-50.1) % Plt Count 286 (140-400) K/mcL Neutrophils # 10.6 H (1.6-8.9) K/mcL BMP 07/19/16 03:30 Sodium 140 Potassium 3.6 Chloride 107 Carbon Dioxide 22 BUN 6 L Creatinine 0.80 Glucose 82 Calcium 8.4 L - ABG Interpretation ABG results: PT/INR, D-dimer PT 12.6 Seconds (9.4-12.1) H 07/17/16 12:35 Consult Discharge Plan - Plan Referrals: Priscilla Washington, TRIAL MANAGEMENT ASSOCIATE [Primary Care Provider] -
[2016-07-19] MEDS ORDERED: Ondansetron ODT 4 MG TAB.RAPDIS SL PRN (11:28)
[2016-07-20] MEDS: Piperacillin/Tazobactam 3.375 GM in D5% in Water (Mini-Bag+) 100 ML IVPB SCH ×2 (00:33→08:59)
[2016-07-20 04:58] LABS: Basophils # 0.1 K/mcL (0.0-0.2); Basophils % 0.5 %; Eosinophils % 0.4 %; Hematocrit 32.4 % (37.5-50.1); Lymphocytes # 1.5 K/mcL (0.6-4.6); Lymphocytes % 14.9 %; Mean Corpuscular Hemoglobin 29.3 pg (28.0-33.3); Mean Corpuscular Volume 86.4 fL (83.0-100.0); Mean Platelet Volume 8.7 fL (9.4-12.4); Monocytes # 1.1 K/mcL (0.0-1.3); Monocytes % 11.3 %; Neutrophils # 7.1 K/mcL (1.6-8.9); Platelet Count 314 K/mcL (140-400); Red Blood Count 3.75 M/mcL (4.19-5.50); Red Cell Distribution Width 13.7 % (11.5-14.5); Segmented Neutrophils % 71.9 %
[2016-07-20 05:23] LABS: BUN/Creatinine Ratio 6 (6-26); Calcium 8.7 mg/dL (8.6-10.8); Carbon Dioxide 25 mEq/L (19-29); Chloride 107 mEq/L (98-109); Glucose 90 mg/dL (70-99); Osmolality,Calculated 289 (280-300); Potassium 3.6 mEq/L (3.5-4.5); Sodium 141 mEq/L (136-145); eGFR For African Americans > 60 (> 60); eGFR For Non-African Americans > 60 (> 60)
[2016-07-20 05:25] LABS: Blood Urea Nitrogen 5 mg/dL (8-26)
[2016-07-20] MEDS: *HR* Enoxaparin 40 MG/0.4 ML SYRINGE SQ SCH (05:49)
[2016-07-20 06:02] LABS: Platelet Estimate Normal (Normal)
[2016-07-20 06:17] LABS: Ferritin 581 ng/ml (22-275)
[2016-07-20 08:01] VITALS: BP 116/78
--- NOTE | 2016-07-20 08:30 | Oncology Inp Progress Note ---
Date of Encounter: 07/20/16 Time of Encounter: 08:24 Oncology: Subj Interval history: History of present illness: Patient seen and examined at bedside. Chart reviewed for interval details and appreciate ongoing care by hospital team. He is feeling considerably better today. Not having any new physical complaints. Respiratory symptoms have completely resolved. No other lingering issues since hospitalization. Cultures have returned negative. He has remained afebrile and maintaining stable vitals including oxygenation. No other new issues. Review of systems: 12 point review of systems as noted above.All other systems are negative: Physical exam: Vital Signs Temp 97.9 F 07/20/16 07:57 Pulse 86 07/20/16 07:57 Resp 15 07/20/16 07:57 BP 116/78 07/20/16 07:57 Pulse Ox 95 07/20/16 07:57 GENERAL: Alert and oriented, lethargic appearing. Mental Status: Affect appropriate for circumstances Skin: No rashes or petechiae. No evidence of skin malignancy Extremities: No edema. No calf swelling or tenderness. No joint deformity. Neurologic: Global weakness but no focal sensorimotor abnormalities. Results: Laboratory Last Values WBC 9.8 K/mcL (4.3-11.1) 07/20/16 04:50 RBC 3.75 M/mcL (4.19-5.50) L 07/20/16 04:50 Hgb 11.0 g/dL (12.9-16.9) L 07/20/16 04:50 Hct 32.4 % (37.5-50.1) L 07/20/16 04:50 MCV 86.4 fL (83.0-100.0) 07/20/16 04:50 MCH 29.3 pg (28.0-33.3) 07/20/16 04:50 MCHC 34.0 g/dL (31.6-35.5) 07/20/16 04:50 RDW 13.7 % (11.5-14.5) 07/20/16 04:50 Plt Count 314 K/mcL (140-400) 07/20/16 04:50 MPV 8.7 fL (9.4-12.4) L 07/20/16 04:50 Immature Gran % 1.0 % (0-4) 07/20/16 04:50 Seg Neutrophils % 71.9 % 07/20/16 04:50 Band Neutrophils % 16.0 % (0-4) H 07/19/16 03:30 Lymphocytes % 14.9 % 07/20/16 04:50 Monocytes % 11.3 % 07/20/16 04:50 Eosinophils % 0.4 % 07/20/16 04:50 Basophils % 0.5 % 07/20/16 04:50 Neutrophils # 7.1 K/mcL (1.6-8.9) 07/20/16 04:50 Lymphocytes # 1.5 K/mcL (0.6-4.6) 07/20/16 04:50 Monocytes # 1.1 K/mcL (0.0-1.3) 07/20/16 04:50 Eosinophils # 0.0 K/mcL (0.0-0.6) 07/20/16 04:50 Basophils # 0.1 K/mcL (0.0-0.2) 07/20/16 04:50 Reactive Lymphocytes Present (Not Present) A 07/18/16 04:50 Platelet Estimate Normal (Normal) 07/20/16 04:50 PT 12.6 Seconds (9.4-12.1) H 07/17/16 12:35 INR 1.2 07/17/16 12:35 APTT 29.6 Seconds (26.0-36.0) 07/17/16 12:35 Sodium 141 mEq/L (136-145) 07/20/16 04:50 Potassium 3.6 mEq/L (3.5-4.5) 07/20/16 04:50 Chloride 107 mEq/L (98-109) 07/20/16 04:50 Carbon Dioxide 25 mEq/L (19-29) 07/20/16 04:50 BUN 5 mg/dL (8-26) L 07/20/16 04:50 Creatinine 0.88 mg/dL (0.72-1.25) 07/20/16 04:50 Est GFR ( Amer) > 60 (> 60) 07/20/16 04:50 Est GFR (Non-Af Amer) > 60 (> 60) 07/20/16 04:50 BUN/Creatinine Ratio 6 (6-26) 07/20/16 04:50 Glucose 90 mg/dL (70-99) 07/20/16 04:50 Calculated Osmolality 289 (280-300) 07/20/16 04:50 Lactic Acid 0.9 mmol/L (0.5-2.2) 07/17/16 12:35 Calcium 8.7 mg/dL (8.6-10.8) 07/20/16 04:50 Phosphorus 3.9 mg/dL (2.3-4.7) 07/19/16 03:30 Magnesium 1.7 mg/dL (1.6-2.6) 07/19/16 03:30 Iron 168 mcg/dL (65-175) 07/18/16 04:50 % Saturation 71 % (20-55) H 07/18/16 04:50 Transferrin 170 mg/dL (174-364) L 07/18/16 04:50 Ferritin 581 ng/ml (22-275) H 07/20/16 04:50 Total Bilirubin 0.5 mg/dL (0.2-1.2) 07/17/16 12:35 Direct Bilirubin 0.2 mg/dL (0.0-0.5) 07/17/16 12:35 Indirect Bilirubin 0.3 mg/dL (0.0-1.2) 07/17/16 12:35 AST 26 Units/L (5-34) 07/17/16 12:35 ALT 32 Units/L (0-55) 07/17/16 12:35 Alkaline Phosphatase 51 Units/L (38-126) 07/17/16 12:35 Troponin I 0.00 ng/mL (0-0.03) 07/17/16 12:35 C-Reactive Protein 6 mg/L (Less than 5) H 07/17/16 12:35 Serum Total Protein 6.5 g/dL (6.0-8.3) 07/17/16 12:35 Albumin 3.4 g/dL (3.5-5.0) L 07/17/16 12:35 Globulin 3.1 g/dL (2.4-3.5) 07/17/16 12:35 Albumin/Globulin Ratio 1.1 (1.1-2.2) 07/17/16 12:35 Ur Specimen Adequacy See below A 07/17/16 12:07 Urine Color Dark Yellow (Yellow) 07/17/16 12:07 Urine Clarity Cloudy (Clear) A 07/17/16 12:07 Urine pH 6.0 pH Units (5.0-8.0) 07/17/16 12:07 Ur Specific King 1.029 (1.010-1.025) H 07/17/16 12:07 Urine Protein 30 mg/dL (Neg-Trace) H 07/17/16 12:07 Urine Glucose (UA) Normal mg/dL (Normal) 07/17/16 12:07 Urine Ketones Negative mg/dL (Negative) 07/17/16 12:07 Urine Blood Negative (Negative) 07/17/16 12:07 Urine Nitrite Negative (Negative) 07/17/16 12:07 Urine Bilirubin Negative (Negative) 07/17/16 12:07 Urine Urobilinogen Normal mg/dL (Normal) 07/17/16 12:07 Ur Leukocyte Esterase Negative (Negative) 07/17/16 12:07 Urine Microscopic RBC 0-3 per hpf (0-3) 07/17/16 12:07 Urine Microscopic WBC 5-15 per hpf (0-3) H 07/17/16 12:07 Ur Squamous Epith Cells Many per lpf (None-Few) H 07/17/16 12:07 Urine Bacteria None Seen per hpf (None-Few) 07/17/16 12:07 Ur Culture Indicated? YES (NO) A 07/17/16 12:07 Vancomycin Trough 11.4 mcg/mL (10-20) 07/19/16 03:30 Urine Opiates Screen Negative ng/mL (Gvtlai=202) 07/17/16 12:07 Ur Barbiturates Screen Negative ng/mL (Rpfwvj=309) 07/17/16 12:07 Ur Phencyclidine Scrn Negative ng/mL (Cutoff=25) 07/17/16 12:07 Ur Amphetamines Screen Negative ng/mL (Rtavto=9629) 07/17/16 12:07 U Benzodiazepines Scrn Negative ng/mL (Tvxbdj=067) 07/17/16 12:07 Urine Cocaine Screen Negative ng/mL (Cutoff= 300) 07/17/16 12:07 U Marijuana (THC) Screen Negative ng/mL (Cutoff = 50) 07/17/16 12:07 Radiographic studies: Impression/recommendations: Acute dyspnea: Like you multifactorial. I suspect that this is related to recent bleomycin therapy given rapid improvement in his symptoms. Cultures are negative. Anticipate improvement in his symptoms and he has completed his planned course of chemotherapy. Given negative cultures and clinical improvement, I think patient can be discharged and he will give his option follow up with Dr. Montesinos. We'll follow the patient along side you during this hospitalization but please do not hesitate to call regarding interval hematologic questions as they arise. Thank you for your excellent ongoing care for allowing us to see him while in- house. This report was created using voice recognition software and may contain errors. It was signed but not edited to expedite communication. - Constitutional Vitals: Vital Signs Temp Pulse Resp BP Pulse Ox 07/20/16 07:57 97.9 F 86 15 116/78 95 07/20/16 05:11 97.9 F 74 16 113/75 92 07/19/16 19:55 98.1 F 97 16 108/73 92 07/19/16 16:20 97 07/19/16 14:30 98.1 F 99 16 115/74 100 07/19/16 11:16 98.3 F 93 17 112/73 95 07/19/16 09:00 95 Intake and Output 07/19/16 07/20/16 07/20/16 16:59 00:59 08:59 Intake Total 2180 / 2180 1147 / 1147 1110 / 1110 Output Total 500 / 500 450 / 450 1380 / 1380 Balance 1680 / 1680 697 / 697 -270 / -270 Intake: IV Fluids 1200 / 1200 787 / 787 630 / 630 0.45% Sodium Chloride 687 / 687 530 / 530 1000 Ml 1000 Ml 1,000 ML @ 75 mls/hr IVC .[id number] [facility] Rx#:[id number] 0.9 % Sodium Chloride 1, 1000 / 1000 000 ML @ 100 mls/hr IVC . Q10H [facility] Rx#:[id number] Zosyn 3.375 GM In 200 / 200 100 / 100 100 / 100 Dextrose 5% (Minibag+) 100 ML 100 ML @ 25 mls/hr IVPB Q8H [facility] Rx#: [id number] Oral 980 / 980 360 / 360 480 / 480 Output: Urine 500 / 500 450 / 450 1380 / 1380 Other: Meal Lunch Dinner Percent of Meal Consumed 50% 100% Oncology: Obj Data - Labs CBC & Chem 7: 07/20/16 04:50 07/20/16 04:50 Labs: Laboratory Results - last 24 hr 07/20/16 07/20/16 04:50 04:50 WBC 9.8 RBC 3.75 L Hgb 11.0 L Hct 32.4 L MCV 86.4 MCH 29.3 MCHC 34.0 RDW 13.7 Plt Count 314 MPV 8.7 L Immature Gran % 1.0 Seg Neutrophils % 71.9 Lymphocytes % 14.9 Monocytes % 11.3 Eosinophils % 0.4 Basophils % 0.5 Neutrophils # 7.1 Lymphocytes # 1.5 Monocytes # 1.1 Eosinophils # 0.0 Basophils # 0.1 Platelet Estimate Normal Sodium 141 Potassium 3.6 Chloride 107 Carbon Dioxide 25 BUN 5 L Creatinine 0.88 Est GFR ( Amer) > 60 Est GFR (Non-Af Amer) > 60 BUN/Creatinine Ratio 6 Glucose 90 Calculated Osmolality 289 Calcium 8.7 Ferritin 581 H - ABG Interpretation ABG results: PT/INR, D-dimer PT 12.6 Seconds (9.4-12.1) H 07/17/16 12:35 Consult Discharge Plan - Plan Referrals: Priscilla Washington, DYE COLORIST DYER [Primary Care Provider] -
--- NOTE | 2016-07-20 09:04 | Discharge Summary ---
Date of Encounter: 07/20/16 Time of Encounter: 09:00 - Discharge Diagnosis (1) Pneumonia Priority: Primary Status: Acute Qualifiers: Pneumonia type: due to unspecified organism Laterality: left Lung location: lower lobe of lung Qualified Code(s): J18.1 - Lobar pneumonia, unspecified organism (2) Neutropenia, drug-induced Priority: Primary Status: Acute (3) Testicular cancer Priority: Secondary Status: Chronic Qualifiers: Descendance of testis: unspecified Laterality: unspecified laterality Qualified Code(s): C62.90 - Malignant neoplasm of unspecified testis, unspecified whether descended or undescended - Discharge Medications Prescriptions: Amoxicillin/Clavulanate [Augmentin] 875 mg PO BIDWM #10 tablet Home Medications: Hydrocodone/Acetaminophen [Hydrocodon-Acetaminophen 5-325] 1 each PO Q4H PRN # 20 tablet 03/28/16 [Rx] Dexamethasone [Decadron] 4 mg PO BID #36 tab 04/15/16 [Rx] Magic Mouthwash [Magic Mouthwash BLM] 10 ml PO QID PRN #240 ml 04/15/16 [Rx] Ondansetron ODT [Zofran ODT] 4 mg SL Q8HR PRN #30 tab.rapdis 04/15/16 [Rx] Prochlorperazine Maleate [Compazine] 10 mg PO Q8HR PRN #90 tablet 04/15/16 [Rx] Lidocaine/Prilocaine CREAM [Emla] 1 gm TP AD #1 tube 04/22/16 [Rx] Promethazine [Phenergan] 12.5 mg RC Q6HR PRN #15 supp.rect 06/08/16 [Rx] Promethazine [Phenergan] 25 mg PO Q6HR PRN #30 tablet 06/08/16 [Rx] Amoxicillin/Clavulanate [Augmentin] 875 mg PO BIDWM #10 tablet 07/20/16 [Rx] Allergies/Adverse Reactions: Allergies No Known Allergies Allergy (Verified 07/04/16 14:40) Date of admission: 07/17/16 15:33 Primary care physician: Priscilla Washington CNP Consults: 07/18/16 10:05 Consult to Oncology [CONS] Routine Consulting Provider: [facility] Reason for Consult: neutropenia Call Completed: Yes - Patient Status Disposition: Home, Self-Care Condition: Good Functional capacity at discharge: independent ambulation - Discharge Instructions Instructions: Testicular Cancer (DC), Syncope (DC), Sepsis (DC), Anemia (GEN) Follow Up With: Priscilla Washington CNP [Primary Care Provider] - 07/28/16 11:00 am Additional Instructions: Follow up with primary care doctor in 1 week, you will need a repeat CXR in 4-6 weeks - Diet and Activity Activity: resume usual activities as tolerated Diet: regular diet Interval History: patient feels good. he wants to go home. Hospital course: Mr. Goody is a 26 year old male with past medical history of testicular cancer on ongoing chemotherapy BEP (last chemotherapy: June) who presented with a chief complaint, fever, chills, cough and syncopal episode at home. His ANC was 1.2. Chest x-ray showed left lower lobe infiltrate. Blood cultures were negative. Influenza test was negative. Urine culture was negative. Patient was admitted with diagnosis of pneumonia and received IV vancomycin and IV Zosyn. He improved clinically and his antibiotics were de-escalated to only IV Zosyn. He completed 3 days of IV antibiotics. He remained hemodynamically stable and asymptomatic. He was discharged home on oral Augmentin for a total of 10 days. PLAN: Continue oral Augmentin. Follow-up with primary care physician in one week. Patient may need a repeat chest x-ray in 4-6 weeks to address resolution of findings. - Time Spent with Patient Total time spent providing and/or coordinating discharge services: - Constitutional Vitals: Temp Pulse Resp BP Pulse Ox 97.9 F 86 15 116/78 95 07/20/16 07:57 07/20/16 07:57 07/20/16 07:57 07/20/16 07:57 07/20/16 07:57 General appearance: Present: cooperative, A&O X 3, pleasant, no acute distress, answers questions appropriately - Eye Eye exam: Present: PERRL, sclera anicteric - Neck Neck exam general surgery: Present: supple, trachea midline. Absent: lymphadenopathy - Respiratory Respiratory exam: Present: rales (at left lung base) - Cardiovascular Cardiovascular exam: Present: RRR - GI/Abdominal GI/Abdominal exam: Present: normal bowel sounds, soft. Absent: distended, tenderness - Extremities Exam Extremities exam: Absent: pedal edema - Back Exam Back exam: Absent: CVA tenderness (L), CVA tenderness (R) - Neurological Exam Neurological exam: Present: alert, oriented X3, no focal deficits, strengths equal and symetr throughout. Absent: facial droop, speech deficit - Skin Skin exam: Absent: rash
== END 2016-07-20 10:14 | disposition home or self-care (01) | DRG 195 ==
LOC: EMEROO 11:27 → 3ANU 11:27 → SUATTDRO 15:33 → 3ANU 16:08
PROVIDERS: ADMIT Internal Medicine; ATTEND Internal Medicine